=== PATIENT | female | born 1985 | race Caucasian/White ===

== ENCOUNTER 2017-06-18 16:28 | Emergency (ER) | payer OTHER ==
[2017-06-18 16:51] VITALS: BP 96/63
== END 2017-06-18 18:28 | disposition home or self-care (01) ==
LOC: ED 16:28
DX: S29.011A Strain of muscle and tendon of front wall of thorax, initial encounter (principal); V49.9XXA Car occupant (driver) (passenger) injured in unspecified traffic accident, initial encounter; Y93.89 Activity, other specified; Y99.8 Other external cause status; Y92.89 Other specified places as the place of occurrence of the external cause